=== PATIENT | female | born 1945 | race African-American/Black ===

== ENCOUNTER 2017-12-01 05:30 | Observation (INO) | payer OTHER ==
--- NOTE | 2017-11-28 15:07 | Diagnostic Imaging Report ---
EXAMINATION: PA and lateral views of the chest. COMPARISON: None CLINICAL HISTORY: Preop for surgery DISCUSSION: The lungs are well-inflated. No focal airspace consolidation, pleural effusion, or pneumothorax. Tortuosity and atherosclerotic calcification of the thoracic aorta. Normal heart size. No pulmonary edema. No acute osseous abnormality. Multilevel degenerative disc changes of the thoracic spine. IMPRESSION: No acute cardiopulmonary abnormalities. Signed by: Dr. Clifton Cash M.D. on 11/28/2017 3:04 PM
[2017-11-28 15:16] LABS: BASOPHILS # (AUTO) 0.1 (0.0-0.1); BASOPHILS % 1.6 % (0.0-1.0); EOSINOPHILS # (AUTO) 0.2 (0.0-0.4); EOSINOPHILS % 3.6 % (0.0-6.0); HEMATOCRIT 41.6 % (34.2-44.1); HEMOGLOBIN 13.3 g/dL (12.0-16.0); LYMPHOCYTES # (AUTO) 2.2 (1.0-3.2); LYMPHOCYTES % 40.3 % (18.0-39.1); MEAN CORPUSCULAR HEMOGLOBIN 29.2 pg (28-32); MEAN CORPUSCULAR VOLUME 91.2 fL (81-99); MONOCYTES # (AUTO) 0.6 (0.2-0.8); MONOCYTES % 11.5 % (4.4-11.3); NEUTROPHILS # (AUTO) 2.3 (2.1-6.9); NEUTROPHILS % 42.8 % (38.7-80.0); PLATELET COUNT 141 x10e3/uL (140-360); RED BLOOD COUNT 4.56 x10e6/uL (3.6-5.1); RED CELL DISTRIBUTION WIDTH 13.4 % (11.7-14.4)
[~2017-12-01] VITALS: Ht 157.5 cm; Wt 59.9 kg
[~2017-12-01 05:30] MED LIST: ALENDRONATE SOD70 MG PO; CENTRUM SILVER1 EAC3 PO; GARLIC TABLET PO; VITAMIN B PO; VITAMIN D PO
[2017-12-01] MEDS ORDERED: BUPIVACAINE 0.25%/EPI 30ML SDV INJ ONE (07:34)
[2017-12-01] MEDS ORDERED: ESTROGENS CONJUGATED VAGINAL CR 45 GM TUBE PV ONE (07:34)
[2017-12-01] MEDS ORDERED: LACTATED RINGER'S 1,000 ML IV SCH (09:02)
[2017-12-01] MEDS ORDERED: ZOLPIDEM TARTRATE 5 MG TAB PO PRN (09:15)
[2017-12-01] MEDS ORDERED: SIMETHICONE 80 MG CHEW PO PRN ×2 (09:15)
[2017-12-01] MEDS ORDERED: DIPHENHYDRAMINE HCL 25 MG CAP PO PRN (09:15)
[2017-12-01] MEDS ORDERED: DOCUSATE SODIUM 100 MG CAP PO PRN (09:15)
[2017-12-01] MEDS ORDERED: ONDANSETRON HCL INJ 2 MG/ML VIAL IV PRN (09:15)
[2017-12-01] MEDS ORDERED: HYDROCODONE/APAP 10MG-325MG TAB PO PRN (09:15)
[2017-12-01] MEDS ORDERED: MORPHINE SULFATE 2 MG/ML SYR ONE (09:29)
[2017-12-01 10:05] VITALS: BP 134/72
[2017-12-01 10:30] VITALS: BP 134/62
[2017-12-01 11:13] VITALS: BP 134/62
[2017-12-01] MEDS: HYDROCODONE/APAP 10MG-325MG TAB PO PRN (11:34)
[2017-12-01] MEDS: LACTATED RINGER'S 1,000 ML IV SCH ×2 (12:18→16:55)
--- NOTE | 2017-12-01 12:37 | Operative Report ---
DATE OF PROCEDURE: PREOPERATIVE DIAGNOSIS: Pelvic organ prolapse. POSTOPERATIVE DIAGNOSIS: Pelvic organ prolapse. PROCEDURES PERFORMED 1. Anterior and posterior repair. 2. Sacrospinous colpopexy. COMPLICATIONS: None. ESTIMATED BLOOD LOSS: 20 mL. DESCRIPTION OF PROCEDURE: Patient was taken to the OR. General anesthesia was placed. She was prepped and draped in normal sterile fashion and placed in dorsal lithotomy position. After examination under anesthesia, a weighted speculum was placed inside the vagina and subvaginal tissue anteriorly was injected with Marcaine with epinephrine 0.25%. Two Allis clamp were applied at the vaginal volt and a transverse vaginal skin incision was made with scalpel. Subvaginal tissue was dissected with Bovie using Metzenbaum scissors and opened in the midline using the same instruments. Thus, two flaps of the vagina were dissected off the underlying muscle using both sharp and blunt dissection. Gentle sweeps of Ray-Aubrie wrapped on the index finger. Following this, the index finger used at the pelvic floor fascia, and ischial spine and sacrospinous segment were palpated on both sides of the pelvis and Capio/needle kurtz was passed to the sacrospinous ligament and Vicryl stitch was taken into the sacrospinous ligament and the same was repeated on the other side of the pelvis and both ends of the sutures were hitched to the vaginal vault. Following this, the pubocervical ligaments were approximated using Vicryl 0 sutures. Excess vaginal skin was trimmed off using curved Cameron scissors. The vagina was closed with interlocking sutures of Vicryl 0. Sutures were tied and the vaginal was lifted. Posterior repair was performed. Two Allis clamps were applied to the mucocutaneous junction about 0.5 cm from fourchette and curved Cameron scissors were used to cut the skin between the 2 Allis clamp. The vagina was dissected off the perineum using Metzenbaum scissors and the vagina was dissected off at the rectum with Metzenbaum scissors using a push-spread technique. The vagina was opened in the midline using the same instruments. Two flaps of the vagina were dissected off the underlying tissues using both sharp and blunt dissection. Levator ani were approximated using Vicryl 0 stitch and excess vaginal skin was trimmed off using curved Cameron scissors and vagina was closed with interlocking sutures of Vicryl 0. Patient tolerated the procedure well. Lap, instruments, and needle count was correct x2 at the end of the procedure. Biswas catheter was placed and revealed clear urine. Vaginal pack was inserted. Job#: [id number] VAS
[2017-12-01 13:00] VITALS: BP 132/74
[2017-12-01] MEDS: MEPERIDINE HCL INJ 25 MG/ML VIAL IV PRN (13:25)
[2017-12-01 16:51] VITALS: BP 105/58
[2017-12-01] MEDS ORDERED: SEVOFLURANE INHAL SOLN 250 ML PEN BTL ONE (17:48)
[2017-12-01] MEDS ORDERED: KETOROLAC TROMETHAMINE 30 MG/ML VIAL ONE (17:48)
[2017-12-01] MEDS ORDERED: PROPOFOL IV EMULSION 10 MG/ML 20 ML VIAL ONE (17:48)
[2017-12-01] MEDS ORDERED: ONDANSETRON HCL INJ 2 MG/ML VIAL ONE (17:48)
[2017-12-01] MEDS ORDERED: DEXAMETHASONE SOD PHOS INJ 4 MG/ML VIAL ONE (17:48)
[2017-12-01] MEDS ORDERED: LIDOCAINE HCL 2% LOCAL INJ 5 ML SDV VIAL INJ ONE (17:48)
[2017-12-01] MEDS ORDERED: EPHEDRINE SULFATE INJ 50 MG/10 ML SYR ONE (17:48)
[2017-12-01] MEDS ORDERED: FENTANYL CITRATE/PF 100MCG/2 ML INJ ONE (18:25)
[2017-12-01] MEDS ORDERED: MIDAZOLAM HCL 2 MG/2 ML VIAL ONE (18:25)
[2017-12-01 22:37] VITALS: BP 105/58
[2017-12-02] VITALS: BP 107/57
[2017-12-02] MEDS: LACTATED RINGER'S 1,000 ML IV SCH ×2 (00:09→09:19)
[2017-12-02] MEDS: MEPERIDINE HCL INJ 25 MG/ML VIAL IV PRN (00:17)
[2017-12-02 04:00] VITALS: BP 121/62
[2017-12-02 08:30] VITALS: BP 118/56
[2017-12-02 08:58] VITALS: BP 118/56
[2017-12-02] MEDS: HYDROCODONE/APAP 10MG-325MG TAB PO PRN (09:19)
[2017-12-02] MEDS ORDERED: TYLENOL WITH C1 EACH PO (11:29)
[2017-12-02 11:45] VITALS: BP 169/74
--- OUTSIDE RECORDS SUMMARY | 2017-12-06 12:52 | XMS REPORT ---
Author Author [facility] Address Unknown Phone Unavailable Care Team Providers Care Pantry Steward/Stewardess Name Role Phone ADELITA BLANC Unavailable Unavailable Problems This patient has no known problems. Allergies, Adverse Reactions, Alerts This patient has no known allergies or adverse reactions. Medications This patient has no known medications. Results Test Description Test Time Test Comments Text Results Atomic Results Result Comments CHEST 2 VIEWS 2017-11-28 15:03:00 [place] [address] Patient Name: JOE AQUINO MR #: [id number] : 1945 Age/Sex: 72/F Req #: [id number] Adm Physician: Ordered by: ADELITA BLANC MD Report #: [id number] Location: OR Room/Bed: Procedure: [id number] DX/CHEST 2 VIEWS Exam Date: 11/28/17 Exam Time: 1445 REPORT STATUS: Signed EXAMINATION: PA and lateral views of the chest. COMPARISON: None CLINICAL HISTORY: Preop for surgery DISCUSSION: The lungs are well-inflated. No focal airspace consolidation, pleural effusion, or pneumothorax. Tortuosity and atherosclerotic calcification of the thoracic aorta. Normal heart size. No pulmonary edema. No acute osseous abnormality. Multilevel degenerative disc changes of the thoracic spine. IMPRESSION: No acute cardiopulmonary abnormalities. Signed by: Dr. Zaire Oreilly M.D. on 11/28/2017 3:04 PM Dictated By: ZAIRE OREILLY MD [id number] Transcribed By: TOSHA on 11/28/17 1504 COPY TO: ADELITA BLANC MD
--- OUTSIDE RECORDS SUMMARY | 2017-12-06 12:52 | XMS REPORT | Summary of Care ---
Author Author [facility] Organization [facility] Address Unknown Phone Unavailable Encounter HQ Encntr_alias(FIN) [id number] Date(s): 02/09/17 - 02/09/[address] [facility] [address] [place] [address]- S [phone] Discharge Disposition: Home or Self Care Attending Physician: Anne-Marie Molina MD Referring Physician: Anne-Marie Molina MD Vital Signs No data available for this section Problem List No data available for this section Allergies, Adverse Reactions, Alerts No data available for this section Medications No data available for this section Results No data available for this section Immunizations No data available for this section Procedures No data available for this section Social History No data available for this section Assessment and Plan No data available for this section
--- OUTSIDE RECORDS SUMMARY | 2017-12-06 12:57 | XMS REPORT | Continuity of Care Document ---
Author Author [facility] Organization Interface Address Unknown Phone Unavailable Problems Problem Status Onset Date Classification Date Reported Comments Source DX: Z68.24=BODY MASS INDEX (BMI) 24.0-24 Active 02/01/2017 [facility] Medications Medication Details Route Status Patient Instructions Ordering Provider Order Date Source Allergies, Adverse Reactions, Alerts Substance Category Reaction Severity Reaction type Status Date Reported Comments Source Immunizations Immunization Date Given Site Status Last Updated Comments Source Results Order Name Results Value Reference Range Date Interpretation Comments Source Abdomen complete US Abdomen complete US ABDOMINAL ULTRASOUND: HISTORY: Chronic hepatitis C, hypertension, history of cholecystectomy. FINDINGS: The gallbladder is not visualized consistent with cholecystectomy. There is no evidence of biliary dilatation. The common duct is 6 mm in diameter. The liver is normal in size with a right lobe sagittal span of approximately 13 cm. There is normal echogenicity of the liver parenchyma without surface nodularity or focal abnormalities. Hepatopedal flow in the main portal vein is demonstrated. The spleen, pancreas, infrarenal aorta and inferior vena cava are within normal limits. There is a 1.5 cm cyst in the right mid kidney. There are no other significant renal abnormalities. IMPRESSION: 1. No ultrasound evidence of cirrhosis or liver mass. 2. Post cholecystectomy without biliary dilatation. 3. No other significant ultrasound abnormalities of the abdomen. [id number] 02/09/2017 - - Read by: Clifton Saravia MD Dictated Date/time: 02/09/17 11:08 Electronically Signed by: Clifton Saravia MD 02/09/17 11:12 FINAL REPORT [facility] Vital Signs Vital Sign Value Date Comments Source Encounters Location Location Details Encounter Type Encounter Number Reason For Visit Attending Provider ADM Date DC Date Status Source [facility] [id number] Anne-Marie Molina 02/09/2017 02/10/2017 [facility] Procedures Procedure Code Date Perfomer Comments Source
== END 2017-12-02 12:08 | disposition home or self-care (01) ==
LOC: OR 05:30 → PACU V 09:10 → IMCU 10:08
PROVIDERS: ADMIT Obstetrics & Gynecology; ATTEND Obstetrics & Gynecology
DX: N81.89 Other female genital prolapse (principal); Z86.19 Personal history of other infectious and parasitic diseases; N39.3 Stress incontinence (female) (male); Z01.810 Encounter for preprocedural cardiovascular examination; Z01.812 Encounter for preprocedural laboratory examination; Z01.811 Encounter for preprocedural respiratory examination
CPT/HCPCS: 36415; 57260; 57282; 71046; 85025; 93005; G0378 ×2; J1100; J1885; J2001; J2175 ×2; J2250; J2270; J2405; J7120 ×2